=== PATIENT | female | born 1935 | race Caucasian/White ===

== ENCOUNTER 2016-08-27 11:30 | Day surgery (SDC) | payer MEDICARE, OTHER ==
[~2016-08-27 11:30] MED LIST: ASA5GR PO; CALTRAT600 PO; CELEXA20 PO; GAMMAGARD; MOBIC15 MG PO; SLEEP AID OTC PO
[2016-08-27 13:06] LABS: CREATININE 0.6 MG/DL (0.55-1.02)
== END 2016-08-27 23:59 | disposition home or self-care (01) ==
LOC: IMGHOLD 11:30
PROVIDERS: Registered Nurse
DX: G89.29 Other chronic pain (principal); M51.16 Intervertebral disc disorders with radiculopathy, lumbar region; M47.26 Other spondylosis with radiculopathy, lumbar region; Z98.890 Other specified postprocedural states; Z85.72 Personal history of non-Hodgkin lymphomas; Z85.42 Personal history of malignant neoplasm of other parts of uterus; Z90.710 Acquired absence of both cervix and uterus; Z96.653 Presence of artificial knee joint, bilateral; Z82.49 Family history of ischemic heart disease and other diseases of the circulatory system; Z88.5 Allergy status to narcotic agent; Z88.8 Allergy status to other drugs, medicaments and biological substances; Z98.1 Arthrodesis status
CPT/HCPCS: 72158; 85014; 85018; 93005; A9577